=== PATIENT | male | born 1950 | race African-American/Black ===

== ENCOUNTER 2018-12-08 15:00 | Emergency (ER) | payer MEDICAID ==
[~2018-12-08] VITALS: Ht 165.1 cm; Wt 67.0 kg
[~2018-12-08 15:00] MED LIST: BENA20TA10 PO; GLIP10TA10 PO; METF-416 PO
[2018-12-08] MEDS ORDERED: TETRACAINE 0.5% OPHTH DROPS 4ML LEFTEYE ONE (18:15)
[2018-12-08] MEDS ORDERED: ACETAZOLAMIDE SODIUM 500MG/VIAL IV ONE (18:30)
[2018-12-08] MEDS ORDERED: TIMOLOL MALEATE 0.5% OPHTH DROPS 5ML LEFTEYE SCH (21:00)
[2018-12-08] MEDS ORDERED: TRAMADOL 50MG TABLET PO ONE (21:30)
[2018-12-08] MEDS ORDERED: ONDANSETRON HCL 4MG/2ML INJ IV ONE (21:30)
[2018-12-08] MEDS ORDERED: PILOCARPINE HCL 2% OPHTH DROPS 15ML LEFTEYE SCH ×2 (22:00)
[2018-12-09 00:03] VITALS: BP 158/93
[2018-12-09] MEDS ORDERED: TIMOLOL MALEATE 0.5% OPHTH DROPS 5ML LEFTEYE SCH (09:00)
== END 2018-12-09 01:32 | disposition short-term general hospital (02) ==
LOC: ER 15:00
DX: H40.9 Unspecified glaucoma (principal); E78.00 Pure hypercholesterolemia, unspecified; E11.9 Type 2 diabetes mellitus without complications; I10 Essential (primary) hypertension; Z98.890 Other specified postprocedural states; Z79.899 Other long term (current) drug therapy
CPT/HCPCS: 96374; 96375; 99285; J1120; J2405